=== PATIENT | male | born 1960 | race Caucasian/White ===

== ENCOUNTER 2021-07-13 13:03 | Emergency (ER) | payer MEDICAID, SELFPAY ==
[~2021-07-13] VITALS: Ht 157.5 cm; Wt 68.0 kg
[2021-07-13 13:03] VITALS: BP 182/102
[~2021-07-13 13:03] MED LIST: ALBU2TAB OR; ALBU83IN IN; AVEL1TAB2 OR; NICO21DI4 TD; No Historical Meds; PERC5TAB8 OR; PRED20TA OR; ZITH250T OR; albuter; albuterol sulfate INH; atrovent INH; magnesium OR
[2021-07-13] MEDS ORDERED: NAPROXEN 250 MG TAB PO ONE (14:00)
[2021-07-13] MEDS ORDERED: NAPR-837 PO (14:25)
== END 2021-07-13 15:14 | disposition home or self-care (01) ==
LOC: M ED 13:03
DX: S92.351A Displaced fracture of fifth metatarsal bone, right foot, initial encounter for closed fracture (principal); F17.200 Nicotine dependence, unspecified, uncomplicated; F12.10 Cannabis abuse, uncomplicated; Z91.030 Bee allergy status

== ENCOUNTER → 2021-07-23 | Outpatient (CLI) | payer SELFPAY ==
[~2021-07-23] MED LIST changes: +NAPR-837 PO
== END ==
LOC: M SOG 09:15
PROVIDERS: ATTEND Orthopaedic Surgery Adult Reconstructive Orthopaedic Surgery
DX: S92.351A Displaced fracture of fifth metatarsal bone, right foot, initial encounter for closed fracture (principal); X58.XXXA Exposure to other specified factors, initial encounter